=== PATIENT | female | born 1960 | race Caucasian/White ===

== ENCOUNTER 2021-10-18 15:57 | Emergency (ER) | payer OTHER ==
[2021-10-18 16:42] VITALS: TEMP 97.9
[2021-10-18] MEDS ORDERED: ONDANSETRON ODT 4 MG TAB PO STA (17:03)
[2021-10-18] MEDS ORDERED: HYDROmorphone 0.5 MG/0.5 ML SYRINGE IM STA (17:03)
--- NOTE | 2021-10-18 17:09 | XR ---
EXAMINATION TYPE: XR shoulder complete RT DATE OF EXAM: 10/18/2021 5:02 PM INDICATION: Patient age:Female; 61 years old; Reason for study: Pain and obvious deformity; COMPARISON: None TECHNIQUE: The right shoulder was examined in frontal and scapular Y. FINDINGS: Anterior-inferior dislocation of the right shoulder with suspected bony injury of the glenoid appreci ated on frontal view. There is soft tissue swelling. The remainder of the osseous structures appear i ntact. IMPRESSION: Anterior-inferior right shoulder dislocation with osseous fragment seen on frontal projection suggest ing a bony Bankart injury.
[2021-10-18] MEDS ORDERED: PROPOFOL 10 MG/ML 20 ML VIAL IV STA (17:38)
[2021-10-18 18:41] VITALS: PULSE 71; RESP 18
[2021-10-18] MEDS ORDERED: PROPOFOL 10 MG/ML 20 ML VIAL IV ONE (18:43)
[2021-10-18] MEDS ORDERED: Acetaminophen-Codeine 300-30mg TAB PO STA (18:49)
[2021-10-18] MEDS ORDERED: IBUPROFEN 600 MG STARTER PACK 4 TAB BTL PO STA (18:55)
[2021-10-18] MEDS ORDERED: ACET/COD 300 MG/30 MG STARTER PACK 6 TAB BTL PO STA (18:55)
[2021-10-18] MEDS ORDERED: ONDANSETRON 4 MG ODT STARTER PACK 2 TAB BTL PO STA (18:55)
[2021-10-18] MEDS ORDERED: traMADol 50 MG TAB PO STA (18:56)
--- NOTE | 2021-10-18 18:56 | ED ---
Upper Extremity HPI - General Source: patient, RN notes reviewed Mode of arrival: wheelchair Limitations: no limitations - History of Present Illness MD Complaint: Injury to:: right, shoulder Place: work Context: fall Treatments Prior to Arrival: other (Shoulder sling) <Chloé Garcia - Last Filed: 10/19/21 10:05> <Audrey Valdez - Last Filed: 10/20/21 00:27> - General Chief Complaint: Extremity Injury, Upper Stated Complaint: Fall/Rt shoulder injury Time Seen by Provider: 10/18/21 16:42 - History of Present Illness Initial Comments: This is a 61-year-old female who presents to the emergency department for a right shoulder injury. Patient states that she was getting up from her chair at work, when she tripped on a box and fell, landing on her right shoulder. She has been unable to move her right shoulder, and upon examination there is an obvious deformity. She is wearing a sling that her boss helped her put on at work. She has not yet taken anything for the pain. Denies any fevers, chills, sore throat, cough, dyspnea, chest pain, palpitations, abdominal pain, nausea, vomiting, diarrhea, back pain, or headaches. (Chloé Garcia) - Related Data Previous Rx's Medication Instructions Recorded Ibuprofen [Motrin] 800 mg PO Q8H PRN #20 tab 10/18/21 Ondansetron Odt [Zofran Odt] 4 mg PO Q8HR PRN #15 tab 10/18/21 traMADol HCl [Ultram] 50 mg PO Q6HR PRN 3 Days #12 tab 10/18/21 Allergies Allergy/AdvReac Type Severity Reaction Status Date / Time acetaminophen [From Vicodin] AdvReac Nausea & Verified 10/18/21 16:42 Vomiting hydrocodone [From Vicodin] AdvReac Nausea & Verified 10/18/21 16:42 Vomiting Review of Systems ROS Other: All systems not noted in ROS Statement are negative. <Chloé Garcia - Last Filed: 10/19/21 10:05> ROS Other: All systems not noted in ROS Statement are negative. <Audrey Valdez - Last Filed: 10/20/21 00:27> ROS Statement: Those systems with pertinent positive or pertinent negative responses have been documented in the HPI. Past Medical History Past Medical History: No Reported History History of Any Multi-Drug Resistant Organisms: None Reported Past Surgical History: Orthopedic Surgery Past Psychological History: No Psychological Hx Reported Smoking Status: Current every day smoker Past Alcohol Use History: Occasional Past Drug Use History: None Reported <Chloé Garcia - Last Filed: 10/19/21 10:05> General Exam Limitations: no limitations General appearance: alert, in distress Head exam: Present: atraumatic, normocephalic, normal inspection Respiratory exam: Present: normal lung sounds bilaterally. Absent: respiratory distress, wheezes, rales, rhonchi, stridor Cardiovascular Exam: Present: regular rate, normal rhythm, normal heart sounds. Absent: systolic murmur, diastolic murmur, rubs, gallop, clicks Extremities exam: Present: other (The right arm is held in abduction with internal rotation of the forearm. A sling is present. The right shoulder is set lower than the left. The acromium is slightly more prominent. She is neurovascularly intact with 2+ radial and ulnar pulses bilaterally, capillary refill is less than 1 second.) Neurological exam: Present: alert, oriented X3, CN II-XII intact Psychiatric exam: Present: normal affect, normal mood Skin exam: Present: warm, dry, intact, normal color. Absent: rash <Chloé Garcia - Last Filed: 10/19/21 10:05> Course Vital Signs 10/18/21 10/18/21 10/18/21 16:37 18:25 18:30 Temperature 97.9 F Pulse Rate 79 83 75 Respiratory 18 18 12 Rate Blood Pressure 128/79 122/58 105/70 O2 Sat by Pulse 98 100 100 Oximetry 10/18/21 10/18/21 10/18/21 18:35 18:40 18:45 Temperature Pulse Rate 74 71 71 Respiratory 16 18 18 Rate Blood Pressure 100/54 109/64 116/75 O2 Sat by Pulse 100 100 100 Oximetry 10/18/21 10/18/21 19:00 19:15 Temperature Pulse Rate Respiratory Rate Blood Pressure 117/78 123/70 O2 Sat by Pulse Oximetry Procedures - [place] Protocol (Time Out) Procedure Performed:: moderate conscious sedation to reduce right shoulder Performing Provider: Audrey Valdez Nurse: Vivi Crooks Respiratory Therapist: Dheeraj Saleh Patient Identification (2 identifiers required): Verbal, Arm Band, Name, Birthdate 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: Identity, Site, Procedure, Consent Site: Right shoulder Site Marked: Yes Site Verified With Patient/Guardian: Yes Final Confirmation: Procedure, Site, Confirmed w/Provider - Orthopedic Joint Reduction Joint #1 Consent Obtained: verbal consent, written consent Side: right Joint Reduction Location: shoulder Analgesia: procedural sedation Shoulder Technique Used (if applicable): external rotation Post-Reduction Neuro Exam: intact Post-Reduction Vascular Exam: intact Post Reduction X-Ray Obtained: Yes Post Reduction X-Ray Results: reduced Splint Applied: Yes <Chloé Garcia - Last Filed: 10/19/21 10:05> - Procedural Sedation Procedural Sedation Start Time: 18:25 Procedural Sedation Stop Time: 18:45 Indications: fracture/dislocation reduction ASA Class: I Mallampati Airway Score: 2 Preparation: family court justice applied, pulse oximeter, capnometry used, supplemental O2 applied, reversal agents at bedside, suction/airway equipment at bedside, IV secured IV Propofol Dose (mgs): 110 Complications: none Patient Tolerated Procedure: well, no complications <Audrey Valdez - Last Filed: 10/20/21 00:27> Medical Decision Making - Radiology Data Radiology results: report reviewed, image reviewed <Chloé Garcia - Last Filed: 10/19/21 10:05> - Medical Decision Making This is a 61-year-old female who presents to the emergency department for a right shoulder injury. Patient has an obvious deformity on physical examination. X-rays reveal an anterior inferior right shoulder dislocation with osseous fragment suggesting a bony Bankart injury. I discussed with the patient the options of attempting to reduce this with pain meds versus conscious sedation. Patient states that she's never had a joint dislocation before and is very concerned about the pain. She requests conscious sedation. Patient was sedated with propofol with respiratory therapy at bedside. Shoulder reduction was performed with Dr. Valdez. She was found to be neurovascularly intact both before and after reduction. Repeat x-ray reveals interval reduction of the dislocation. She was noted to have a fairly unstable shoulder following reduction, suggestive of a rotator cuff injury. XR also suggests a suspected Hill-Sachs deformity. Patient does report improvement of pain following reduction. She was placed in a sling and instructed to avoid moving the arm. Information for orthopedic follow-up provided. She is instructed to contact them in the morning for a follow-up appointment. We also discussed the risks of a frozen shoulder when not moving the arm for a prolonged period of time. This further reiterates the need to follow-up with orthopedics as soon as possible for further management. Rx for tramadol, Motrin, and Zofran provided. The Zofran was given as the patient becomes nauseous with pain medication. She was also given starter packs to help her get through the night, as her pharmacy is closed at this point. Return precautions reviewed in depth, the patient is instructed to return to the emergency department with any new, worsening, or concerning symptoms. Patient verbalized understanding. This case was discussed in detail with the attending ED physician. Presentation, findings, and treatment plan discussed in detail as well. (Chloé Garcia) Disposition Is patient prescribed a controlled substance at d/c from ED?: Yes When asked, does pt state using other controlled substances?: No If prescribed controlled substance>3 days was MAPS reviewed?: Prescribed <3 Days <Chloé Garcia - Last Filed: 10/19/21 10:05> <Audrey Valdez - Last Filed: 10/20/21 00:27> Clinical Impression: Anterior dislocation of right shoulder Disposition: HOME SELF-CARE Instructions (If sedation given, give patient instructions): Shoulder Dislocation (ED), How to Use a Sling (ED), Moderate Sedation (ED) Additional Instructions: Return to the emergency department with any new, worsening, or concerning symptoms. Contact orthopedics tomorrow morning for a follow-up appointment. Take the tramadol at night until you know how it affects you, as it may be sedating. You may take this with the ibuprofen. Use the Zofran as needed for any nausea and vomiting you may experience with either medication. Apply ice for the first 2 days, followed by heat there afterwards. Use the sling as much as possible to avoid moving the arm. Prescriptions: Ibuprofen [Motrin] 800 mg PO Q8H PRN #20 tab PRN Reason: Pain traMADol HCl [Ultram] 50 mg PO Q6HR PRN 3 Days #12 tab PRN Reason: Pain Ondansetron Odt [Zofran Odt] 4 mg PO Q8HR PRN #15 tab PRN Reason: Nausea And Vomiting Referrals: None,Stated [Primary Care Provider] - 1-2 days Nnamdi Nguyen DO [Doctor of Osteopathic Medicine] - 1-2 days
[2021-10-18] MEDS ORDERED: traMADol 50 MG STARTER PACK 3 TAB BTL PO STA (18:57)
--- NOTE | 2021-10-18 19:16 | XR ---
EXAMINATION TYPE: XR shoulder complete RT DATE OF EXAM: 10/18/2021 6:46 PM INDICATION: Patient age:Female; 61 years old; Reason for study: post shoulder reduction; COMPARISON: Prereduction films of the shoulder. TECHNIQUE: The right shoulder was examined in frontal FINDINGS: Limited frontal view only demonstrates the humeral head an a more appropriate anatomic alignment. No definitive evidence for bony Bankart fragment. Suspected Hill-Sachs deformity deformity present. IMPRESSION: 1. Limited frontal knee with interval reduction of right anterior inferior humerus dislocation. 2. Suspected Hill-Sachs deformity. Bony Bankart no definitively visualized. This could be completely evaluated with nonemergent CT shoulder if clinically warranted.
[2021-10-18 20:11] VITALS: BP 123/70
== END 2021-10-18 19:53 | disposition home or self-care (01) ==
LOC: EC 15:57
DX: S43.014A Anterior dislocation of right humerus, initial encounter (principal); F17.200 Nicotine dependence, unspecified, uncomplicated; Z88.5 Allergy status to narcotic agent; W01.0XXA Fall on same level from slipping, tripping and stumbling without subsequent striking against object, initial encounter
CPT/HCPCS: 73030; 23650; 99283; 96372; S0119; J2704; J1170